=== PATIENT | male | born 1955 | race Caucasian/White ===

== ENCOUNTER 2019-02-17 12:09 | Inpatient (IN) | payer MEDICAID ==
[~2019-02-17] VITALS: Ht 172.7 cm; Wt 98.4 kg
[2019-02-17] MEDS ORDERED: LEVOFLOXACIN 750MG PREMIX 150 ML IV ONE (12:45)
[2019-02-17] MEDS ORDERED: SODIUM CHLORIDE 0.9% 1000ML BAG (SEPSIS BOLUS) IV ONE (12:45)
[2019-02-17 13:02] LABS: HEMATOCRIT. 37.6 % (42.0-52.0); HEMOGLOBIN. 12.9 g/dL (14.0-18.0); MEAN CORPUSCULAR HEMOGLOBIN 29.2 pg (28.0-32.0); MEAN CORPUSCULAR VOLUME 85.2 fL (80.0-94.0); RED BLOOD CELL COUNT 4.41 mill/uL (4.7-6.1); RED CELL DISTRIBUTION WIDTH 17.3 % (11.6-14.6)
[2019-02-17 13:09] LABS: CHLORIDE 103 mEq/L (98-107)
[2019-02-17 13:12] LABS: INR 1.9; PARTIAL THROMBOPLASTIN TIME 64.2 sec (23.4-31.0); PROTHROMBIN TIME 18.8 sec (9.6-11.0)
[2019-02-17] MEDS ORDERED: ACETAMINOPHEN 325MG TABLET PO ONE (13:15)
[2019-02-17 13:32] LABS: PLATELET ESTIMATE NORMAL
[2019-02-17 13:33] LABS: MEAN PLATELET VOLUME 8.1 fl (7.4-10.4); PLATELET 181 x1000/uL (130-400)
[2019-02-17] MEDS ORDERED: LACTULOSE 20G/30ML UDC PO ONE (14:00)
[2019-02-17 14:52] LABS: HEPATITIS B SURFACE ANTIGEN NEGATIVE
[2019-02-17] MEDS ORDERED: POTASSIUM CHLORIDE 20MEQ TABLET SR PO ONE (15:00)
[2019-02-17 15:22] LABS: HEPATITIS A AB IGM React (NEGATIVE)
[2019-02-17] MEDS ORDERED: LORAZEPAM 2MG/ML CPJ IV PRN (16:00)
[2019-02-17] MEDS ORDERED: GUAIFENESIN 200MG/10ML SUGAR FREE UDC PO PRN (16:00)
[2019-02-17] MEDS ORDERED: DOCUSATE SODIUM 100MG CAPSULE PO PRN (16:00)
[2019-02-17] MEDS ORDERED: HYDROCODONE/ACETAMINOPHEN 5/325MG TABLET PO PRN (16:00)
[2019-02-17] MEDS ORDERED: CLONIDINE 0.1MG TABLET PO PRN (16:00)
[2019-02-17] MEDS ORDERED: ONDANSETRON HCL 4MG/2ML INJ IV PRN (16:00)
[2019-02-17] MEDS ORDERED: ACETAMINOPHEN 325MG TABLET PO PRN (16:00)
[2019-02-17 17:27] LABS: CLARITY URINE CLOUDY (CLEAR); COLOR URINE DARK YELLOW (YELLOW); KETONES URINE NEGATIVE (NEGATIVE); LEUKOCYTE ESTERASE URINE 1+ (NEGATIVE); NITRITE URINE POSITIVE (NEGATIVE); OCCULT BLOOD URINE NEGATIVE (NEGATIVE); PROTEIN URINE TRACE (NEGATIVE); SPECIFIC GRAVITY URINE 1.023 (1.005-1.030); UROBILINOGEN URINE 0.2 E.U./dL (0.2-1.0)
[2019-02-17 21:50] VITALS: BP 123/82
[2019-02-17] MEDS: LACTULOSE 20G/30ML UDC PO SCH (22:00)
[2019-02-17] MEDS: SODIUM CHLORIDE 0.45% 1,000 ML IV SCH (23:08)
[2019-02-18 04:00] VITALS: BP 133/76
[2019-02-18 07:14] LABS: HEMATOCRIT. 37.5 % (42.0-52.0); HEMOGLOBIN. 13.1 g/dL (14.0-18.0); MEAN CORPUSCULAR HEMOGLOBIN 29.8 pg (28.0-32.0); MEAN CORPUSCULAR VOLUME 85.3 fL (80.0-94.0); MEAN PLATELET VOLUME 8.6 fl (7.4-10.4); PLATELET 160 x1000/uL (130-400); RED CELL DISTRIBUTION WIDTH 17.1 % (11.6-14.6)
[2019-02-18 07:50] LABS: CHLORIDE 106 mEq/L (98-107)
[2019-02-18 08:54] VITALS: BP 127/73
[2019-02-18] MEDS: AMLODIPINE 10MG TABLET PO SCH (09:17)
[2019-02-18] MEDS: LACTULOSE 20G/30ML UDC PO SCH ×2 (09:17→21:08)
[2019-02-18 11:43] VITALS: BP 108/63
[2019-02-18] MEDS: LEVOFLOXACIN 500MG PREMIX 100 ML IV SCH ×4 (12:20→13:54)
[2019-02-18] MEDS: POTASSIUM CHLORIDE 20MEQ TABLET SR PO NR ×4 (12:20→13:54)
[2019-02-18] MEDS: SODIUM CHLORIDE 0.45% 1,000 ML IV SCH (13:55)
[2019-02-18 14:31] LABS: PLATELET ESTIMATE NORMAL
[2019-02-18 15:46] VITALS: BP 136/80
[2019-02-18 20:00] VITALS: BP 119/65
[2019-02-18 23:50] VITALS: BP 120/68
[2019-02-19 04:00] VITALS: BP 126/64
[2019-02-19 06:50] LABS: HEMATOCRIT. 39.7 % (42.0-52.0); HEMOGLOBIN. 13.6 g/dL (14.0-18.0); MEAN CORPUSCULAR HEMOGLOBIN 29.2 pg (28.0-32.0); MEAN CORPUSCULAR VOLUME 85.5 fL (80.0-94.0); RED BLOOD CELL COUNT 4.64 mill/uL (4.7-6.1); RED CELL DISTRIBUTION WIDTH 17.5 % (11.6-14.6)
[2019-02-19 07:48] VITALS: BP 119/71
[2019-02-19 07:53] LABS: CHLORIDE 104 mEq/L (98-107)
[2019-02-19] MEDS: LACTULOSE 20G/30ML UDC PO SCH ×3 (08:22→21:20)
[2019-02-19] MEDS: AMLODIPINE 10MG TABLET PO SCH ×2 (08:22→09:00)
[2019-02-19 12:10] VITALS: BP 129/76
[2019-02-19 12:41] LABS: PLATELET ESTIMATE NORMAL
[2019-02-19 12:42] LABS: PLATELET 135 x1000/uL (130-400)
[2019-02-19 20:00] VITALS: BP 123/80
[2019-02-19] MEDS: HALOPERIDOL LACTATE 5MG/ML VIAL IM PRN (22:10)
[2019-02-19] MEDS: SODIUM CHLORIDE 0.45% 1,000 ML IV SCH (23:24)
[2019-02-20] VITALS: BP 114/68
[2019-02-20 04:00] VITALS: BP 117/73
[2019-02-20 08:00] VITALS: BP 120/73
[2019-02-20] MEDS: LACTULOSE 20G/30ML UDC PO SCH ×2 (08:34→21:10)
[2019-02-20] MEDS: AMLODIPINE 10MG TABLET PO SCH ×2 (08:35→08:41)
[2019-02-20 12:00] VITALS: BP 122/80
[2019-02-20] MEDS: LEVOFLOXACIN 500MG PREMIX 100 ML IV SCH (13:00)
[2019-02-20] MEDS: HALOPERIDOL LACTATE 5MG/ML VIAL IM PRN (14:53)
[2019-02-20 16:00] VITALS: BP 124/78
[2019-02-20 20:00] VITALS: BP 125/72
[2019-02-20] MEDS: LORAZEPAM 1MG TABLET PO PRN (21:11)
[2019-02-21] VITALS: BP 133/83
[2019-02-21 04:00] VITALS: BP 139/90
[2019-02-21 08:00] VITALS: BP 118/73
[2019-02-21] MEDS: AMLODIPINE 10MG TABLET PO SCH (09:11)
[2019-02-21] MEDS: LACTULOSE 20G/30ML UDC PO SCH ×2 (09:12→20:56)
[2019-02-21] MEDS: HALOPERIDOL LACTATE 5MG/ML VIAL IM PRN (11:45)
[2019-02-21 12:00] VITALS: BP 138/75
[2019-02-21] MEDS: LEVOFLOXACIN 500MG TABLET PO SCH (12:54)
[2019-02-21 16:00] VITALS: BP 107/53
[2019-02-21 20:00] VITALS: BP 107/63
[2019-02-21] MEDS: LORAZEPAM 1MG TABLET PO PRN (20:56)
[2019-02-22] VITALS: BP 114/67
[2019-02-22 04:00] VITALS: BP 128/77
[2019-02-22] MEDS: HALOPERIDOL LACTATE 5MG/ML VIAL IM PRN (08:30)
[2019-02-22] MEDS: AMLODIPINE 10MG TABLET PO SCH (08:30)
[2019-02-22] MEDS: LACTULOSE 20G/30ML UDC PO SCH ×2 (08:30→20:30)
[2019-02-22 12:00] VITALS: BP 118/74
[2019-02-22] MEDS: LORAZEPAM 1MG TABLET PO PRN ×2 (12:25→20:33)
[2019-02-22] MEDS: LEVOFLOXACIN 500MG TABLET PO SCH (12:26)
[2019-02-22 16:00] VITALS: BP 88/56
[2019-02-22 20:00] VITALS: BP 97/68
[2019-02-23] VITALS: BP 99/63
[2019-02-23 04:00] VITALS: BP 101/59
[2019-02-23 08:00] VITALS: BP 100/53
[2019-02-23] MEDS: AMLODIPINE 10MG TABLET PO SCH (09:00)
[2019-02-23] MEDS: LACTULOSE 20G/30ML UDC PO SCH ×2 (10:27→20:19)
[2019-02-23 11:35] VITALS: BP 118/69
[2019-02-23] MEDS: LORAZEPAM 1MG TABLET PO PRN ×2 (12:12→20:22)
[2019-02-23] MEDS: LEVOFLOXACIN 500MG TABLET PO SCH (12:12)
[2019-02-23 16:00] VITALS: BP 104/64
[2019-02-23 20:00] VITALS: BP 114/58
[2019-02-24] VITALS: BP 99/53
[2019-02-24 04:00] VITALS: BP 105/62
[2019-02-24] MEDS: HALOPERIDOL LACTATE 5MG/ML VIAL IM PRN ×3 (05:17→22:26)
[2019-02-24 08:00] VITALS: BP 97/60
[2019-02-24] MEDS: LACTULOSE 20G/30ML UDC PO SCH ×2 (09:00→21:18)
[2019-02-24] MEDS: AMLODIPINE 10MG TABLET PO SCH (09:00)
[2019-02-24 12:00] VITALS: BP 131/71
[2019-02-24] MEDS: LEVOFLOXACIN 500MG TABLET PO SCH (13:00)
[2019-02-24 20:00] VITALS: BP 106/48
[2019-02-24] MEDS: LORAZEPAM 1MG TABLET PO PRN (23:35)
[2019-02-25] VITALS: BP 102/63
[2019-02-25 04:00] VITALS: BP 97/64
[2019-02-25 08:00] VITALS: BP 112/63
[2019-02-25] MEDS: LACTULOSE 20G/30ML UDC PO SCH ×2 (09:00→20:14)
[2019-02-25] MEDS: AMLODIPINE 10MG TABLET PO SCH (09:00)
[2019-02-25] MEDS: HALOPERIDOL LACTATE 5MG/ML VIAL IM PRN ×2 (09:15→19:39)
[2019-02-25 12:00] VITALS: BP 112/71
[2019-02-25 16:00] VITALS: BP 112/68
[2019-02-25] MEDS: LORAZEPAM 1MG TABLET PO PRN (16:23)
[2019-02-25 20:00] VITALS: BP 111/64
[2019-02-25] MEDS ORDERED: IPRATROPIUM/ALBUTEROL 0.5-3(2.5)MG/3ML NEB HHN PRN (21:00)
[2019-02-25] MEDS: GUAIFENESIN 600MG ER TABLET PO SCH (23:11)
[2019-02-26] VITALS: BP 121/75
[2019-02-26] MEDS: IPRATROPIUM/ALBUTEROL 0.5-3(2.5)MG/3ML NEB HHN SCH ×4 (01:35→21:55)
[2019-02-26] MEDS: LORAZEPAM 1MG TABLET PO PRN (02:17)
[2019-02-26 04:00] VITALS: BP 99/52
[2019-02-26 08:00] VITALS: BP 106/59
[2019-02-26] MEDS: LACTULOSE 20G/30ML UDC PO SCH ×2 (09:00→22:34)
[2019-02-26] MEDS: GUAIFENESIN 600MG ER TABLET PO SCH ×2 (09:00→23:00)
[2019-02-26] MEDS: AMLODIPINE 10MG TABLET PO SCH (09:00)
[2019-02-26 12:00] VITALS: BP 101/56
[2019-02-26 16:00] VITALS: BP 96/55
[2019-02-26 20:43] LABS: BG BASE EXCESS 3.3 mmol/L (-2.0-2.0); BG CARBOXYHEMOGLOBIN 2.1 % (0.5-1.5); BG DEOXYHEMOGLOBIN 0.5 % (0.0-5.0); BG FRACTION INSPIRED OXYGEN 100; BG HCO3 ACT 28.9 mmol/L (22.0-26.0); BG METHEMOGLOBIN 0.2 % (0.0-1.5); BG OXYGEN SATURATION 99.5 % (92.0-98.5); BG OXYHEMOGLOBIN 97.2 % (94.0-97.0); BG PCO2 47.5 mmHg (35.0-45.0); BG PH 7.402 (7.350-7.450); BG PO2 180.1 mmHg (75.0-100.0); BG SAMPLE SITE LEFT RADIAL; BG TOTAL HEMOGLOBIN 14.6 g/dL (12.0-18.0); BG VENT MODE MASK - NRB
[2019-02-26] MEDS: DEXT 5%/0.45% NACL 1000ML 1,000 ML IV SCH (22:37)
[2019-02-27 00:10] LABS: HEMATOCRIT. 38.1 % (42.0-52.0); HEMOGLOBIN. 13.3 g/dL (14.0-18.0); MEAN CORPUSCULAR HEMOGLOBIN 30.6 pg (28.0-32.0); MEAN CORPUSCULAR VOLUME 87.4 fL (80.0-94.0); RED BLOOD CELL COUNT 4.36 mill/uL (4.7-6.1); RED CELL DISTRIBUTION WIDTH 18.8 % (11.6-14.6)
[2019-02-27 00:14] LABS: CHLORIDE 104 mEq/L (98-107)
[2019-02-27 00:25] LABS: MEAN PLATELET VOLUME 9.1 fl (7.4-10.4); PLATELET 97 x1000/uL (130-400)
[2019-02-27] MEDS: IPRATROPIUM/ALBUTEROL 0.5-3(2.5)MG/3ML NEB HHN SCH ×4 (01:45→20:08)
[2019-02-27 04:43] LABS: PLATELET ESTIMATE DECREASED
[2019-02-27] MEDS: LACTULOSE 20G/30ML UDC PO SCH ×2 (09:00→21:20)
[2019-02-27] MEDS ORDERED: VANCOMYCIN 1500MG in DEXTROSE 5% WATER 250ML IV SCH (10:30)
[2019-02-27] MEDS: GUAIFENESIN 600MG ER TABLET PO SCH ×2 (11:31→21:21)
[2019-02-27] MEDS: AMLODIPINE 10MG TABLET PO SCH (11:33)
[2019-02-27] MEDS: DEXT 5%/0.45% NACL 1000ML 1,000 ML IV SCH (11:41)
[2019-02-27 12:00] VITALS: BP 110/65
[2019-02-27] MEDS: PIPERACILLIN/TAZ 3.375G PREMIX 50 ML IV SCH ×2 (12:21→18:06)
[2019-02-27 16:00] VITALS: BP 115/73
[2019-02-27 20:00] VITALS: BP 106/61
[2019-02-27 22:00] VITALS: BP 95/58
[2019-02-27] MEDS: VANCOMYCIN 1500MG in DEXTROSE 5% WATER 250ML IV SCH (22:58)
[2019-02-27] MEDS ORDERED: VANCOMYCIN 1250MG in DEXTROSE 5% WATER 250ML IV SCH (23:00)
[2019-02-28] VITALS (10 sets, daily range): BP systolic 101–143; BP diastolic 60–73
[2019-02-28] MEDS: PIPERACILLIN/TAZ 3.375G PREMIX 50 ML IV SCH ×4 (00:03→18:25)
[2019-02-28] MEDS: IPRATROPIUM/ALBUTEROL 0.5-3(2.5)MG/3ML NEB HHN SCH ×4 (01:35→20:37)
[2019-02-28 05:19] LABS: CHLORIDE 104 mEq/L (98-107)
[2019-02-28 06:18] LABS: BASOPHILS % 0.4 % (0.0-2.0); EOSINOPHILS % 0.4 % (0.0-5.0); HEMATOCRIT. 37.5 % (42.0-52.0); HEMOGLOBIN. 13.1 g/dL (14.0-18.0); LYMPHOCYTES % 7.3 % (20.0-50.0); MEAN CORPUSCULAR HEMOGLOBIN 30.8 pg (28.0-32.0); MEAN CORPUSCULAR VOLUME 87.8 fL (80.0-94.0); MONOCYTES % 12.4 % (2.0-8.0); NEUTROPHILS % 79.5 % (40.0-76.0); RED BLOOD CELL COUNT 4.27 mill/uL (4.7-6.1); RED CELL DISTRIBUTION WIDTH 19.9 % (11.6-14.6)
[2019-02-28] MEDS: VANCOMYCIN 1500MG in DEXTROSE 5% WATER 250ML IV SCH ×2 (08:51→21:34)
[2019-02-28] MEDS: DEXT 5%/0.45% NACL 1000ML 1,000 ML IV SCH ×2 (08:51→18:37)
[2019-02-28] MEDS: LACTULOSE 20G/30ML UDC PO SCH ×2 (08:52→21:43)
[2019-02-28] MEDS: AMLODIPINE 10MG TABLET PO SCH (08:52)
[2019-02-28] MEDS: GUAIFENESIN 600MG ER TABLET PO SCH ×2 (08:52→21:43)
[2019-02-28 10:46] LABS: PLATELET 79 x1000/uL (130-400)
[2019-02-28] MEDS: HALOPERIDOL LACTATE 5MG/ML VIAL IM PRN ×2 (11:24→21:27)
[2019-03-01] VITALS (9 sets, daily range): BP systolic 104–140; BP diastolic 38–80
[2019-03-01] MEDS: PIPERACILLIN/TAZ 3.375G PREMIX 50 ML IV SCH ×3 (00:12→13:37)
[2019-03-01] MEDS: LORAZEPAM 1MG TABLET PO PRN ×2 (00:41→16:13)
[2019-03-01] MEDS: DEXT 5%/0.45% NACL 1000ML 1,000 ML IV SCH (06:44)
[2019-03-01 07:12] LABS: BASOPHILS % 0.2 % (0.0-2.0); EOSINOPHILS % 0.8 % (0.0-5.0); HEMATOCRIT. 35.7 % (42.0-52.0); HEMOGLOBIN. 12.6 g/dL (14.0-18.0); LYMPHOCYTES % 7.5 % (20.0-50.0); MEAN CORPUSCULAR HEMOGLOBIN 30.8 pg (28.0-32.0); MEAN CORPUSCULAR VOLUME 87.5 fL (80.0-94.0); MONOCYTES % 12.2 % (2.0-8.0); NEUTROPHILS % 79.3 % (40.0-76.0); RED BLOOD CELL COUNT 4.08 mill/uL (4.7-6.1); RED CELL DISTRIBUTION WIDTH 19.2 % (11.6-14.6)
[2019-03-01 07:29] LABS: CHLORIDE 102 mEq/L (98-107)
[2019-03-01 08:09] LABS: PLATELET 95 x1000/uL (130-400)
[2019-03-01] MEDS: AMLODIPINE 10MG TABLET PO SCH (09:00)
[2019-03-01] MEDS: LACTULOSE 20G/30ML UDC PO SCH ×2 (09:14→23:24)
[2019-03-01] MEDS: GUAIFENESIN 600MG ER TABLET PO SCH ×2 (09:14→23:23)
[2019-03-01] MEDS: VANCOMYCIN 1500MG in DEXTROSE 5% WATER 250ML IV SCH (10:01)
[2019-03-01] MEDS: HALOPERIDOL LACTATE 5MG/ML VIAL IM PRN ×2 (15:09→19:29)
[2019-03-01] MEDS: VANCOMYCIN 1250MG in DEXTROSE 5% WATER 250ML IV SCH (17:13)
[2019-03-01] MEDS: LORAZEPAM 2MG/ML CPJ IM PRN (19:29)
[2019-03-01] MEDS: SULFAMETHOXAZOLE/TRIMETHOPRIM 400/80MG TAB PO SCH (23:23)
[2019-03-02] VITALS: BP 93/55
[2019-03-02] MEDS: VANCOMYCIN 1250MG in DEXTROSE 5% WATER 250ML IV SCH ×3 (02:00→17:29)
[2019-03-02 04:00] VITALS: BP 96/56
[2019-03-02] MEDS: HALOPERIDOL LACTATE 5MG/ML VIAL IM PRN ×2 (05:08→20:00)
[2019-03-02] MEDS: LORAZEPAM 2MG/ML CPJ IM PRN ×3 (05:08→20:00)
[2019-03-02 08:00] VITALS: BP 96/55
[2019-03-02] MEDS: AMLODIPINE 10MG TABLET PO SCH (08:32)
[2019-03-02] MEDS: LACTULOSE 20G/30ML UDC PO SCH ×2 (08:56→21:15)
[2019-03-02] MEDS: SULFAMETHOXAZOLE/TRIMETHOPRIM 400/80MG TAB PO SCH ×2 (09:00→21:13)
[2019-03-02] MEDS: GUAIFENESIN 600MG ER TABLET PO SCH ×2 (09:00→21:13)
[2019-03-02] MEDS: CEFTRIAXONE SODIUM 1 G/VIAL IM SCH (09:00)
[2019-03-02] MEDS ORDERED: LIDOCAINE HCL/EPINEPHRINE 1%-EPI 1:100,000 20 ML VIAL INFIL NR (10:00)
[2019-03-02 12:00] VITALS: BP 104/63
[2019-03-02 16:00] VITALS: BP 96/65
[2019-03-02 20:00] VITALS: BP 103/65
[2019-03-03] VITALS: BP 93/55
[2019-03-03] MEDS: VANCOMYCIN 1250MG in DEXTROSE 5% WATER 250ML IV SCH ×3 (02:00→18:00)
[2019-03-03 04:00] VITALS: BP 101/54
[2019-03-03 08:00] VITALS: BP 98/56
[2019-03-03] MEDS: AMLODIPINE 10MG TABLET PO SCH (09:00)
[2019-03-03] MEDS: LACTULOSE 20G/30ML UDC PO SCH ×2 (09:00→20:45)
[2019-03-03] MEDS: CEFTRIAXONE SODIUM 1 G/VIAL IM SCH (10:45)
[2019-03-03] MEDS: LORAZEPAM 2MG/ML CPJ IM PRN ×2 (10:46→20:41)
[2019-03-03] MEDS: GUAIFENESIN 600MG ER TABLET PO SCH ×2 (10:47→20:59)
[2019-03-03] MEDS: SULFAMETHOXAZOLE/TRIMETHOPRIM 400/80MG TAB PO SCH ×2 (10:47→20:47)
[2019-03-03 12:00] VITALS: BP 99/56
[2019-03-03] MEDS: HALOPERIDOL LACTATE 5MG/ML VIAL IM PRN ×2 (12:32→21:24)
[2019-03-03 13:29] LABS: BASOPHILS % 0.2 % (0.0-2.0); EOSINOPHILS % 0.4 % (0.0-5.0); HEMATOCRIT. 37.2 % (42.0-52.0); LYMPHOCYTES % 7.5 % (20.0-50.0); MEAN CORPUSCULAR HEMOGLOBIN 30.7 pg (28.0-32.0); MEAN PLATELET VOLUME 8.6 fl (7.4-10.4); MONOCYTES % 13.6 % (2.0-8.0); NEUTROPHILS % 78.3 % (40.0-76.0); PLATELET 107 x1000/uL (130-400); RED BLOOD CELL COUNT 4.23 mill/uL (4.7-6.1); RED CELL DISTRIBUTION WIDTH 19.7 % (11.6-14.6)
[2019-03-03 13:37] LABS: CHLORIDE 104 mEq/L (98-107)
[2019-03-03 14:14] LABS: PLATELET ESTIMATE DECREASED
[2019-03-03 16:00] VITALS: BP 98/60
[2019-03-03 20:00] VITALS: BP 118/60
[2019-03-04] VITALS: BP 122/66
[2019-03-04] MEDS: LORAZEPAM 2MG/ML CPJ IM PRN (01:10)
[2019-03-04] MEDS: VANCOMYCIN 1250MG in DEXTROSE 5% WATER 250ML IV SCH ×2 (02:00→10:00)
[2019-03-04] MEDS: HALOPERIDOL LACTATE 5MG/ML VIAL IM PRN (05:42)
[2019-03-04 07:54] VITALS: BP 95/58
[2019-03-04] MEDS: LACTULOSE 20G/30ML UDC PO SCH (09:00)
[2019-03-04] MEDS: SULFAMETHOXAZOLE/TRIMETHOPRIM 400/80MG TAB PO SCH ×2 (09:00→21:00)
[2019-03-04] MEDS: GUAIFENESIN 600MG ER TABLET PO SCH ×2 (09:00→21:00)
[2019-03-04] MEDS: AMLODIPINE 10MG TABLET PO SCH (09:00)
[2019-03-04] MEDS: CEFTRIAXONE SODIUM 1 G/VIAL IM SCH (10:33)
[2019-03-04] MEDS: LIDOCAINE HCL/PF 1% 10 MG/ML 5ML VIAL IJ SCH (10:33)
[2019-03-04 12:00] VITALS: BP 98/53
[2019-03-04 12:17] LABS: HEMOGLOBIN. 12.6 g/dL (14.0-18.0); MEAN CORPUSCULAR HEMOGLOBIN 30.2 pg (28.0-32.0); MEAN CORPUSCULAR VOLUME 88.4 fL (80.0-94.0); MEAN PLATELET VOLUME 8.5 fl (7.4-10.4); PLATELET 112 x1000/uL (130-400); RED BLOOD CELL COUNT 4.18 mill/uL (4.7-6.1); RED CELL DISTRIBUTION WIDTH 21.7 % (11.6-14.6)
[2019-03-04 12:23] LABS: CHLORIDE 105 mEq/L (98-107)
[2019-03-04 13:01] LABS: PLATELET ESTIMATE SLIGHTLY DECREASED
[2019-03-04 16:00] VITALS: BP 93/49
[2019-03-04] MEDS ORDERED: STERILE WATER PR SCH (18:00)
[2019-03-04] MEDS ORDERED: LACTULOSE ENEMA PR SCH (18:00)
[2019-03-04 20:00] VITALS: BP 100/53
[2019-03-04] MEDS ORDERED: LACTULOSE 20G/30ML UDC PR SCH (21:00)
[2019-03-05] VITALS (7 sets, daily range): BP systolic 90–106; BP diastolic 45–62
[2019-03-05] MEDS: HALOPERIDOL LACTATE 5MG/ML VIAL IM PRN (02:16)
[2019-03-05] MEDS: LORAZEPAM 2MG/ML CPJ IM PRN ×2 (07:54→18:55)
[2019-03-05] MEDS: GUAIFENESIN 600MG ER TABLET PO SCH ×2 (08:17→21:00)
[2019-03-05] MEDS: AMLODIPINE 10MG TABLET PO SCH (08:17)
[2019-03-05] MEDS: SULFAMETHOXAZOLE/TRIMETHOPRIM 400/80MG TAB PO SCH ×2 (08:17→21:00)
[2019-03-05] MEDS: CEFTRIAXONE SODIUM 1 G/VIAL IM SCH ×2 (08:17→09:00)
[2019-03-05] MEDS: LIDOCAINE HCL/PF 1% 10 MG/ML 5ML VIAL IJ SCH (09:00)
[2019-03-05] MEDS: LACTULOSE 20G/30ML UDC PO SCH ×2 (13:30→17:00)
[2019-03-05] MEDS ORDERED: LACTULOSE 300 ML in WATER FOR IRRIGATION,STERILE 700 ML PR SCH (14:00)
[2019-03-05] MEDS: PHYTONADIONE 10MG/ML AMP SUBCUT SCH (15:46)
[2019-03-05 16:51] LABS: INR 1.9; PARTIAL THROMBOPLASTIN TIME 54.3 sec (23.4-31.0); PROTHROMBIN TIME 19.4 sec (9.6-11.0)
[2019-03-05 17:12] LABS: HEMATOCRIT 39.1 % (42.0-52.0); HEMOGLOBIN 13.6 g/dL (14.0-18.0); MEAN CORPUSCULAR HEMOGLOBIN 30.9 pg (28.0-32.0); MEAN CORPUSCULAR VOLUME 88.7 fL (80.0-94.0); PLATELET 152 x1000/uL (130-400); RED CELL DISTRIBUTION WIDTH 22.1 % (11.6-14.6)
[2019-03-05] MEDS: RIFAXIMIN 550 MG TABLET PO SCH (21:00)
[2019-03-06] VITALS: BP 98/53
[2019-03-06 04:00] VITALS: BP 101/54
[2019-03-06] MEDS: LORAZEPAM 2MG/ML CPJ IM PRN ×2 (05:39→12:33)
[2019-03-06 07:36] LABS: BG CARBOXYHEMOGLOBIN 1.9 % (0.5-1.5); BG DEOXYHEMOGLOBIN 5.7 % (0.0-5.0); BG FRACTION INSPIRED OXYGEN 36; BG HCO3 ACT 31.4 mmol/L (22.0-26.0); BG METHEMOGLOBIN 0.1 % (0.0-1.5); BG OXYGEN SATURATION 94.2 % (92.0-98.5); BG OXYHEMOGLOBIN 92.3 % (94.0-97.0); BG PCO2 48.9 mmHg (35.0-45.0); BG PH 7.426 (7.350-7.450); BG PO2 72.5 mmHg (75.0-100.0); BG SAMPLE SITE RIGHT RADIAL; BG TOTAL HEMOGLOBIN 13.1 g/dL (12.0-18.0); BG VENT MODE NASAL CANNULA
[2019-03-06] MEDS ORDERED: DEXTROSE 50% WATER 50ML SYRINGE IV PRN (07:43)
[2019-03-06] MEDS: LIDOCAINE HCL/PF 1% 10 MG/ML 5ML VIAL IJ SCH (09:00)
[2019-03-06] MEDS: RIFAXIMIN 550 MG TABLET PO SCH ×2 (09:00→22:03)
[2019-03-06] MEDS: LACTULOSE 20G/30ML UDC PO SCH ×2 (09:00→17:00)
[2019-03-06] MEDS: SULFAMETHOXAZOLE/TRIMETHOPRIM 400/80MG TAB PO SCH ×2 (09:00→22:03)
[2019-03-06] MEDS: GUAIFENESIN 600MG ER TABLET PO SCH ×2 (09:00→22:03)
[2019-03-06] MEDS: AMLODIPINE 10MG TABLET PO SCH (09:00)
[2019-03-06] MEDS: HALOPERIDOL LACTATE 5MG/ML VIAL IM PRN (09:58)
[2019-03-06] MEDS: PHYTONADIONE 10MG/ML AMP SUBCUT SCH (09:59)
[2019-03-06] MEDS: CEFTRIAXONE SODIUM 1 G/VIAL IM SCH (10:03)
[2019-03-06 11:37] LABS: HEMATOCRIT 34.4 % (42.0-52.0); HEMOGLOBIN 11.8 g/dL (14.0-18.0); MEAN CORPUSCULAR HEMOGLOBIN 30.4 pg (28.0-32.0); MEAN CORPUSCULAR VOLUME 88.6 fL (80.0-94.0); PLATELET 150 x1000/uL (130-400); RED BLOOD CELL COUNT 3.88 mill/uL (4.7-6.1); RED CELL DISTRIBUTION WIDTH 22.6 % (11.6-14.6)
[2019-03-06 11:45] LABS: INR 1.6; PARTIAL THROMBOPLASTIN TIME 52.8 sec (23.4-31.0); PROTHROMBIN TIME 16.4 sec (9.6-11.0)
[2019-03-06 12:00] VITALS: BP 105/56
[2019-03-06] MEDS: DEXT 5%/0.45% NACL 1000ML 1,000 ML IV SCH (13:11)
[2019-03-06 17:29] LABS: INR 1.5; PROTHROMBIN TIME 15.4 sec (9.6-11.0)
[2019-03-06 20:00] VITALS: BP 102/60
[2019-03-06] MEDS ORDERED: LORAZEPAM 2MG/ML CPJ IM PRN (20:45)
[2019-03-07] VITALS: BP 103/68
[2019-03-07] MEDS: HALOPERIDOL LACTATE 5MG/ML VIAL IM PRN ×3 (00:59→20:51)
[2019-03-07 04:00] VITALS: BP 115/72
[2019-03-07] MEDS: DEXT 5%/0.45% NACL 1000ML 1,000 ML IV SCH ×2 (06:15→17:25)
[2019-03-07 08:00] VITALS: BP 101/67
[2019-03-07 08:50] LABS: HEMATOCRIT 34.5 % (42.0-52.0); HEMOGLOBIN 11.9 g/dL (14.0-18.0); MEAN CORPUSCULAR HEMOGLOBIN 30.6 pg (28.0-32.0); MEAN CORPUSCULAR VOLUME 89.2 fL (80.0-94.0); RED BLOOD CELL COUNT 3.87 mill/uL (4.7-6.1); RED CELL DISTRIBUTION WIDTH 23.6 % (11.6-14.6)
[2019-03-07] MEDS: AMLODIPINE 10MG TABLET PO SCH (09:00)
[2019-03-07 09:01] LABS: INR 1.6; PARTIAL THROMBOPLASTIN TIME 51.3 sec (23.4-31.0); PROTHROMBIN TIME 16.2 sec (9.6-11.0)
[2019-03-07 09:52] LABS: PLATELET 145 x1000/uL (130-400)
[2019-03-07] MEDS: RIFAXIMIN 550 MG TABLET PO SCH ×2 (10:37→20:35)
[2019-03-07] MEDS: PHYTONADIONE 10MG/ML AMP SUBCUT SCH (10:38)
[2019-03-07] MEDS: LACTULOSE 20G/30ML UDC PO SCH ×2 (10:40→17:25)
[2019-03-07] MEDS: GUAIFENESIN 600MG ER TABLET PO SCH ×2 (10:45→20:35)
[2019-03-07] MEDS: CEFTRIAXONE SODIUM 1 G/VIAL IM SCH (10:45)
[2019-03-07] MEDS: SULFAMETHOXAZOLE/TRIMETHOPRIM 400/80MG TAB PO SCH ×2 (10:45→20:35)
[2019-03-07] MEDS: LIDOCAINE HCL/PF 1% 10 MG/ML 5ML VIAL IJ SCH (11:12)
[2019-03-07 12:00] VITALS: BP 103/69
[2019-03-07 16:00] VITALS: BP 129/78
[2019-03-07 20:00] VITALS: BP 112/66
[2019-03-08] VITALS: BP 95/62
[2019-03-08] MEDS: HALOPERIDOL LACTATE 5MG/ML VIAL IM PRN ×2 (03:08→17:40)
[2019-03-08 04:00] VITALS: BP 111/67
[2019-03-08] MEDS: DEXT 5%/0.45% NACL 1000ML 1,000 ML IV SCH (07:55)
[2019-03-08 08:00] VITALS: BP 97/52
[2019-03-08] MEDS: AMLODIPINE 10MG TABLET PO SCH (09:00)
[2019-03-08] MEDS: LACTULOSE 20G/30ML UDC PO SCH (09:00)
[2019-03-08 09:23] LABS: INR 1.6; PROTHROMBIN TIME 16.6 sec (9.6-11.0)
[2019-03-08] MEDS: SULFAMETHOXAZOLE/TRIMETHOPRIM 400/80MG TAB PO SCH (09:46)
[2019-03-08] MEDS: RIFAXIMIN 550 MG TABLET PO SCH (09:46)
[2019-03-08] MEDS: LIDOCAINE HCL/PF 1% 10 MG/ML 5ML VIAL IJ SCH (09:49)
[2019-03-08] MEDS: GUAIFENESIN 600MG ER TABLET PO SCH (09:49)
[2019-03-08] MEDS: CEFTRIAXONE SODIUM 1 G/VIAL IM SCH (09:50)
[2019-03-08 12:00] VITALS: BP 95/60
[2019-03-08 16:00] VITALS: BP 99/67
[2019-03-08 17:07] VITALS: BP 99/67
== END 2019-03-08 19:15 | DRG 710 ==
LOC: ER 12:09 → 6WST 14:57 → SUPCPDRO 15:55 → ENRESERV 19:35 → 6WST 21:10 → 6EST 02-19 15:06 → 5EST 02-26 20:17 → 6WST 03-01 02:00 → 6EST 03-01 14:34
PROVIDERS: ADMIT Hospitalist; ATTEND Hospitalist
PROC: 0KB50ZZ Excision of Right Shoulder Muscle, Open Approach (ICD-10-PCS; principal; 2019-03-02)
PROC: 0DH67UZ Insertion of Feeding Device into Stomach, Via Natural or Artificial Opening (ICD-10-PCS; 2019-03-08)
DX: A41.9 Sepsis, unspecified organism (principal); K72.00 Acute and subacute hepatic failure without coma; D68.9 Coagulation defect, unspecified; E44.1 Mild protein-calorie malnutrition; R18.8 Other ascites; Z78.1 Physical restraint status; B15.9 Hepatitis A without hepatic coma; N39.0 Urinary tract infection, site not specified; E87.6 Hypokalemia; B19.20 Unspecified viral hepatitis C without hepatic coma; F10.10 Alcohol abuse, uncomplicated; L02.413 Cutaneous abscess of right upper limb; K74.60 Unspecified cirrhosis of liver; Z91.14 Patient's other noncompliance with medication regimen; Z59.0 Homelessness; W19.XXXA Unspecified fall, initial encounter
CPT/HCPCS: 36415; 36600; 71045; 73030; 76705; 80048; 80076; 80202; 82140; 82248; 82375; 82805; 82962; 83605; 83735; 84134; 84145; 84484; 85027; 86705; 86709; 86803; 86850; 86900; 87070; 87077; 87340; 92610; 93005; 94640; 96365; 96366; 99285; A6261; C1893; J0696; J1630; J1956; J2060; J2543; J3370; J3430; J3490; J7030; J7050; J7060; J7620; A4315

== ENCOUNTER 2019-04-29 03:29 | Inpatient (IN) | payer MEDICAID ==
[~2019-04-29] VITALS: Ht 198.1 cm; Wt 92.6 kg
[2019-04-29] MEDS ORDERED: ONDANSETRON HCL 4MG/2ML INJ IV STA (04:34)
[2019-04-29 05:06] LABS: BASOPHILS % 0.4 % (0.0-2.0); HEMATOCRIT. 28.2 % (42.0-52.0); HEMOGLOBIN. 9.8 g/dL (14.0-18.0); LYMPHOCYTES % 14.8 % (20.0-50.0); MEAN CORPUSCULAR VOLUME 101.2 fL (80.0-94.0); MEAN PLATELET VOLUME 7.5 fl (7.4-10.4); MONOCYTES % 13.3 % (2.0-8.0); NEUTROPHILS % 70.5 % (40.0-76.0); PLATELET 150 x1000/uL (130-400); RED BLOOD CELL COUNT 2.79 mill/uL (4.7-6.1); RED CELL DISTRIBUTION WIDTH 14.8 % (11.6-14.6)
[2019-04-29 05:18] LABS: CHLORIDE 102 mEq/L (98-107)
[2019-04-29 06:16] LABS: CLARITY URINE CLEAR (CLEAR); COLOR URINE YELLOW (YELLOW); KETONES URINE NEGATIVE (NEGATIVE); LEUKOCYTE ESTERASE URINE NEGATIVE (NEGATIVE); NITRITE URINE NEGATIVE (NEGATIVE); OCCULT BLOOD URINE NEGATIVE (NEGATIVE); PROTEIN URINE NEGATIVE (NEGATIVE); SPECIFIC GRAVITY URINE 1.003 (1.005-1.030); UROBILINOGEN URINE 0.2 E.U./dL (0.2-1.0)
[2019-04-29] MEDS ORDERED: ACETAMINOPHEN 325MG TABLET PO PRN (06:45)
[2019-04-29] MEDS ORDERED: CLONIDINE 0.1MG TABLET PO PRN (06:45)
[2019-04-29] MEDS ORDERED: IPRATROPIUM/ALBUTEROL 0.5-3(2.5)MG/3ML NEB INH PRN (06:45)
[2019-04-29] MEDS ORDERED: DOCUSATE SODIUM 100MG CAPSULE PO PRN (06:45)
[2019-04-29] MEDS ORDERED: HYDROCODONE/ACETAMINOPHEN 5/325MG TABLET PO PRN (06:45)
[2019-04-29] MEDS ORDERED: DEXT 5%/0.9% NACL 1,000 ML IV ONE (06:45)
[2019-04-29] MEDS ORDERED: MAGNESIUM/ALUMINUM HYDROXIDE/SIMETHICONE 30ML UDC PO PRN (06:45)
[2019-04-29] MEDS ORDERED: GUAIFENESIN 200MG/10ML SUGAR FREE UDC PO PRN (06:45)
[2019-04-29] MEDS ORDERED: ONDANSETRON HCL 4MG/2ML INJ IV PRN (06:45)
[2019-04-29 08:10] LABS: PHOSPHORUS 3.1 mg/dL (2.5-4.9)
[2019-04-29 08:33] LABS: HEPATITIS B SURFACE ANTIGEN NEGATIVE
[2019-04-29 09:03] LABS: HEPATITIS A AB IGM React (NEGATIVE)
[2019-04-29 09:10] VITALS: BP 169/98
[2019-04-29 12:00] VITALS: BP 110/68
[2019-04-29] MEDS: ENOXAPARIN 30MG/0.3ML SYR SUBCUT SCH ×2 (12:32→21:01)
[2019-04-29 16:00] VITALS: BP 116/67
[2019-04-29 20:00] VITALS: BP 100/61
[2019-04-30] VITALS: BP 111/70
[2019-04-30 04:00] VITALS: BP 140/66
[2019-04-30 04:16] LABS: HIV SCREEN 4G Non Reactive (Non Reactive)
[2019-04-30 05:35] LABS: BASOPHILS % 0.3 % (0.0-2.0); EOSINOPHILS % 0.5 % (0.0-5.0); HEMATOCRIT. 27.8 % (42.0-52.0); HEMOGLOBIN. 9.4 g/dL (14.0-18.0); LYMPHOCYTES % 7.2 % (20.0-50.0); MEAN CORPUSCULAR HEMOGLOBIN 34.8 pg (28.0-32.0); MEAN CORPUSCULAR VOLUME 102.6 fL (80.0-94.0); MEAN PLATELET VOLUME 8.1 fl (7.4-10.4); PLATELET 179 x1000/uL (130-400); RED BLOOD CELL COUNT 2.71 mill/uL (4.7-6.1); RED CELL DISTRIBUTION WIDTH 14.9 % (11.6-14.6)
[2019-04-30 05:40] LABS: CHLORIDE 103 mEq/L (98-107)
[2019-04-30 05:51] LABS: LDL CHOLESTEROL 66 mg/dL (5-100)
[2019-04-30 05:52] LABS: HDL CHOLESTEROL 15 mg/dL (40-59)
[2019-04-30 08:00] VITALS: BP 100/54
[2019-04-30] MEDS: ENOXAPARIN 30MG/0.3ML SYR SUBCUT SCH ×2 (08:53→22:13)
[2019-04-30 12:00] VITALS: BP_SYST 100; BP_SYST 106; BP_DIAS 56; BP_DIAS 58
[2019-04-30 16:00] VITALS: BP 149/68
[2019-04-30 20:00] VITALS: BP 100/61
[2019-04-30] MEDS: DIPHENHYDRAMINE 50MG/ML VIAL IV PRN (22:13)
[2019-04-30] MEDS: HALOPERIDOL LACTATE 5MG/ML VIAL IM PRN (23:29)
[2019-05-01] VITALS: BP 103/70
[2019-05-01] MEDS: DIPHENHYDRAMINE 50MG/ML VIAL IV PRN (03:27)
[2019-05-01 04:00] VITALS: BP 100/77
[2019-05-01 08:00] VITALS: BP 112/50
[2019-05-01] MEDS: ENOXAPARIN 30MG/0.3ML SYR SUBCUT SCH ×2 (08:22→20:14)
[2019-05-01 08:50] LABS: BASOPHILS % 0.8 % (0.0-2.0); EOSINOPHILS % 1.3 % (0.0-5.0); HEMATOCRIT. 26.5 % (42.0-52.0); HEMOGLOBIN. 9.2 g/dL (14.0-18.0); LYMPHOCYTES % 12.6 % (20.0-50.0); MEAN CORPUSCULAR HEMOGLOBIN 35.3 pg (28.0-32.0); MEAN CORPUSCULAR VOLUME 102.1 fL (80.0-94.0); MEAN PLATELET VOLUME 8.2 fl (7.4-10.4); MONOCYTES % 13.5 % (2.0-8.0); NEUTROPHILS % 71.8 % (40.0-76.0); PLATELET 167 x1000/uL (130-400); RED CELL DISTRIBUTION WIDTH 14.6 % (11.6-14.6)
[2019-05-01 09:00] LABS: CHLORIDE 106 mEq/L (98-107)
[2019-05-01 12:00] VITALS: BP 107/77
[2019-05-01] MEDS: HALOPERIDOL LACTATE 5MG/ML VIAL IM PRN ×2 (12:42→19:45)
[2019-05-01 16:00] VITALS: BP 90/59
[2019-05-01] MEDS ORDERED: VANCOMYCIN 1500MG in DEXTROSE 5% WATER 250ML IV SCH (18:00)
[2019-05-01 20:00] VITALS: BP 100/56
[2019-05-01] MEDS: FUROSEMIDE 40MG TABLET PO SCH (20:19)
[2019-05-01] MEDS: SPIRONOLACTONE 50MG TABLET PO SCH (20:19)
[2019-05-01] MEDS: VANCOMYCIN 1 G PREMIX 200 ML IV SCH (23:15)
[2019-05-02] VITALS: BP 95/57
[2019-05-02] MEDS: HALOPERIDOL LACTATE 5MG/ML VIAL IM PRN (01:17)
[2019-05-02 04:00] VITALS: BP 96/65
[2019-05-02 08:00] VITALS: BP 129/83
[2019-05-02] MEDS: VANCOMYCIN 1 G PREMIX 200 ML IV SCH ×3 (08:04→23:59)
[2019-05-02] MEDS: ENOXAPARIN 30MG/0.3ML SYR SUBCUT SCH ×2 (09:00→20:28)
[2019-05-02] MEDS: FUROSEMIDE 40MG TABLET PO SCH ×2 (09:57→20:28)
[2019-05-02] MEDS: SPIRONOLACTONE 50MG TABLET PO SCH (09:57)
[2019-05-02 12:00] VITALS: BP 100/80
[2019-05-02 12:12] LABS: INR 1.1; PARTIAL THROMBOPLASTIN TIME 30.1 sec (23.4-31.0)
[2019-05-02] MEDS ORDERED: LIDOCAINE HCL 1% 20ML VIAL (Pyxis) INJ ONE (12:37)
[2019-05-02] MEDS ORDERED: SODIUM BICARBONATE 4% (2.4MEQ) 5ML VIAL IV ONE (12:38)
[2019-05-02 16:00] VITALS: BP 108/68
[2019-05-02 16:18] LABS: *BARBITURATES SCREEN URINE NEGATIVE (NEGATIVE); *BENZODIAZEPINES SCREEN URINE NEGATIVE (NEGATIVE); *COCAINE SCREEN URINE NEGATIVE (NEGATIVE)
[2019-05-02 16:20] LABS: *AMPHETAMINES SCREEN URINE NEGATIVE (NEGATIVE); CANNABINOID URINE SCREEN NEGATIVE (NEGATIVE); METHADONE URINE SCREEN NEGATIVE (NEGATIVE); OPIATES URINE SCREEN NEGATIVE (NEGATIVE); PHENCYCLIDINE URINE SCREEN NEGATIVE (NEGATIVE)
[2019-05-02] MEDS: MULTIVITAMINS,THER W-MINERALS TABLET PO SCH (16:41)
[2019-05-02] MEDS: FOLIC ACID 1MG TABLET PO SCH (16:42)
[2019-05-02] MEDS: THIAMINE HCL 100MG TABLET PO SCH (16:42)
[2019-05-02 16:44] LABS: ETHANOL BLOOD < 10 mg/dL
[2019-05-02 16:50] LABS: T4 FREE 1.24 ng/dL (0.76-1.46)
[2019-05-02 17:02] LABS: FOLIC ACID (FOLATE) SERUM 7.4 ng/mL (>5.38)
[2019-05-02 20:00] VITALS: BP 91/53
[2019-05-03] VITALS: BP 90/60
[2019-05-03 04:00] VITALS: BP 100/67
[2019-05-03 07:08] LABS: BASOPHILS % 0.5 % (0.0-2.0); EOSINOPHILS % 1.7 % (0.0-5.0); HEMATOCRIT. 29.1 % (42.0-52.0); LYMPHOCYTES % 12.3 % (20.0-50.0); MEAN CORPUSCULAR HEMOGLOBIN 35.1 pg (28.0-32.0); MEAN CORPUSCULAR VOLUME 101.6 fL (80.0-94.0); MEAN PLATELET VOLUME 7.4 fl (7.4-10.4); MONOCYTES % 12.4 % (2.0-8.0); NEUTROPHILS % 73.1 % (40.0-76.0); PLATELET 201 x1000/uL (130-400); RED BLOOD CELL COUNT 2.86 mill/uL (4.7-6.1); RED CELL DISTRIBUTION WIDTH 14.4 % (11.6-14.6)
[2019-05-03 07:56] LABS: CHLORIDE 103 mEq/L (98-107)
[2019-05-03 08:00] VITALS: BP 103/58
[2019-05-03 08:04] LABS: VANCOMYCIN TROUGH 20.5 ug/mL (5.0-10.0)
[2019-05-03] MEDS: VANCOMYCIN 1 G PREMIX 200 ML IV SCH (08:15)
[2019-05-03] MEDS: ENOXAPARIN 30MG/0.3ML SYR SUBCUT SCH ×2 (08:15→22:12)
[2019-05-03] MEDS: THIAMINE HCL 100MG TABLET PO SCH (08:15)
[2019-05-03] MEDS: MULTIVITAMINS,THER W-MINERALS TABLET PO SCH (08:15)
[2019-05-03] MEDS: SPIRONOLACTONE 50MG TABLET PO SCH ×2 (08:15→09:00)
[2019-05-03] MEDS: FUROSEMIDE 40MG TABLET PO SCH ×2 (08:16→22:12)
[2019-05-03] MEDS: FOLIC ACID 1MG TABLET PO SCH (08:18)
[2019-05-03 12:00] VITALS: BP 96/54
[2019-05-03 16:00] VITALS: BP 101/58
[2019-05-03] MEDS: LACTULOSE 20G/30ML UDC PO SCH (18:25)
[2019-05-03 20:00] VITALS: BP 113/69
[2019-05-03] MEDS: VANCOMYCIN 1500MG in DEXTROSE 5% WATER 250ML IV SCH (22:12)
[2019-05-03] MEDS: DIPHENHYDRAMINE 50MG/ML VIAL IV PRN (22:12)
[2019-05-04] VITALS: BP 109/59
[2019-05-04 04:00] VITALS: BP 100/59
[2019-05-04 07:20] LABS: BASOPHILS % 0.3 % (0.0-2.0); EOSINOPHILS % 0.4 % (0.0-5.0); HEMATOCRIT. 27.9 % (42.0-52.0); HEMOGLOBIN. 9.8 g/dL (14.0-18.0); LYMPHOCYTES % 7.8 % (20.0-50.0); MEAN CORPUSCULAR HEMOGLOBIN 35.1 pg (28.0-32.0); MEAN CORPUSCULAR VOLUME 100.6 fL (80.0-94.0); MEAN PLATELET VOLUME 7.5 fl (7.4-10.4); MONOCYTES % 9.6 % (2.0-8.0); NEUTROPHILS % 81.9 % (40.0-76.0); PLATELET 217 x1000/uL (130-400); RED BLOOD CELL COUNT 2.78 mill/uL (4.7-6.1); RED CELL DISTRIBUTION WIDTH 14.6 % (11.6-14.6)
[2019-05-04 08:00] VITALS: BP 101/56
[2019-05-04 08:28] LABS: CHLORIDE 103 mEq/L (98-107)
[2019-05-04] MEDS: LACTULOSE 20G/30ML UDC PO SCH ×2 (08:47→17:03)
[2019-05-04] MEDS: SPIRONOLACTONE 50MG TABLET PO SCH (08:48)
[2019-05-04] MEDS: ENOXAPARIN 30MG/0.3ML SYR SUBCUT SCH ×2 (08:48→22:58)
[2019-05-04] MEDS: MULTIVITAMINS,THER W-MINERALS TABLET PO SCH (08:48)
[2019-05-04] MEDS: FOLIC ACID 1MG TABLET PO SCH (08:48)
[2019-05-04] MEDS: FUROSEMIDE 40MG TABLET PO SCH ×2 (08:48→21:10)
[2019-05-04] MEDS: HALOPERIDOL LACTATE 5MG/ML VIAL IM PRN ×2 (08:49→17:03)
[2019-05-04] MEDS: THIAMINE HCL 100MG TABLET PO SCH (09:03)
[2019-05-04] MEDS: VANCOMYCIN 1500MG in DEXTROSE 5% WATER 250ML IV SCH ×2 (09:04→21:10)
[2019-05-04 12:40] VITALS: BP 81/42
[2019-05-04 16:43] VITALS: BP 113/58
[2019-05-04 20:00] VITALS: BP 109/61
[2019-05-05] VITALS: BP 101/69
[2019-05-05 04:00] VITALS: BP 109/68
[2019-05-05 08:00] VITALS: BP 162/134
[2019-05-05] MEDS: VANCOMYCIN 1500MG in DEXTROSE 5% WATER 250ML IV SCH (09:39)
[2019-05-05] MEDS: MULTIVITAMINS,THER W-MINERALS TABLET PO SCH (09:40)
[2019-05-05] MEDS: THIAMINE HCL 100MG TABLET PO SCH (09:40)
[2019-05-05] MEDS: LACTULOSE 20G/30ML UDC PO SCH (09:40)
[2019-05-05] MEDS: FUROSEMIDE 40MG TABLET PO SCH (09:40)
[2019-05-05] MEDS: FOLIC ACID 1MG TABLET PO SCH (09:40)
[2019-05-05] MEDS: SPIRONOLACTONE 50MG TABLET PO SCH (09:40)
[2019-05-05] MEDS: ENOXAPARIN 30MG/0.3ML SYR SUBCUT SCH (09:40)
[2019-05-05 10:54] LABS: BASOPHILS % 0.5 % (0.0-2.0); EOSINOPHILS % 0.8 % (0.0-5.0); HEMATOCRIT. 29.6 % (42.0-52.0); HEMOGLOBIN. 10.1 g/dL (14.0-18.0); LYMPHOCYTES % 13.1 % (20.0-50.0); MEAN CORPUSCULAR HEMOGLOBIN 34.9 pg (28.0-32.0); MEAN CORPUSCULAR VOLUME 101.9 fL (80.0-94.0); MONOCYTES % 8.5 % (2.0-8.0); NEUTROPHILS % 77.1 % (40.0-76.0); PLATELET 205 x1000/uL (130-400); RED BLOOD CELL COUNT 2.91 mill/uL (4.7-6.1); RED CELL DISTRIBUTION WIDTH 14.5 % (11.6-14.6)
[2019-05-05 11:35] LABS: CHLORIDE 101 mEq/L (98-107)
[2019-05-05 12:00] VITALS: BP 106/68
[2019-05-05] MEDS ORDERED: POTASSIUM CHLORIDE 20MEQ TABLET SR PO SCH (13:15)
[2019-05-05] MEDS ORDERED: ENOXAPARIN 100MG/ML SYR SUBCUT SCH (14:00)
[2019-05-05] MEDS ORDERED: LACTULOSE 20G/30ML UDC PO SCH (14:00)
[2019-05-05 16:08] VITALS: BP 100/53
[2019-05-05 18:48] VITALS: BP 100/53
[2019-05-05] MEDS ORDERED: VANCOMYCIN 1 G PREMIX 200 ML IV SCH (22:00)
== END 2019-05-05 19:40 | DRG 279 ==
LOC: ER 03:46 → 8WST 06:06 → ENRESERV 07:49 → 8WST 04-30 21:50
PROVIDERS: ADMIT Internal Medicine; ATTEND Internal Medicine
PROC: 0W9G3ZZ Drainage of Peritoneal Cavity, Percutaneous Approach (ICD-10-PCS; 2019-05-02)
PROC: 4A00X4Z Measurement of Central Nervous Electrical Activity, External Approach (ICD-10-PCS; principal; 2019-05-04)
DX: K72.00 Acute and subacute hepatic failure without coma (principal); G92 Toxic encephalopathy; D68.9 Coagulation defect, unspecified; I11.0 Hypertensive heart disease with heart failure; E87.1 Hypo-osmolality and hyponatremia; I50.9 Heart failure, unspecified; K70.31 Alcoholic cirrhosis of liver with ascites; D64.9 Anemia, unspecified; B15.9 Hepatitis A without hepatic coma; F41.9 Anxiety disorder, unspecified; I73.9 Peripheral vascular disease, unspecified; S41.009A Unspecified open wound of unspecified shoulder, initial encounter; J45.909 Unspecified asthma, uncomplicated; S00.91XA Abrasion of unspecified part of head, initial encounter; X58.XXXA Exposure to other specified factors, initial encounter; Y93.89 Activity, other specified; Y92.89 Other specified places as the place of occurrence of the external cause; Y99.8 Other external cause status; Z59.0 Homelessness; Z22.322 Carrier or suspected carrier of Methicillin resistant Staphylococcus aureus
CPT/HCPCS: 36415; 49083; 70551; 71045; 76705; 80048; 80061; 80076; 80202; 80305; 80320; 82140; 82607; 82746; 83036; 83735; 84100; 84134; 84439; 84443; 84481; 86705; 86709; 86803; 87340; 87389; 93970; 93971; 96374; 97161; 99285; J1200; J1630; J1650; J2405; J3370; J3490; J7060; G0480

== ENCOUNTER 2019-05-25 07:57 | Inpatient (IN) | payer MEDICAID ==
[~2019-05-25] VITALS: Ht 180.3 cm; Wt 60.3 kg
[2019-05-25 09:34] LABS: BASOPHILS % 0.2 % (0.0-2.0); EOSINOPHILS % 0.6 % (0.0-5.0); HEMATOCRIT. 34.7 % (42.0-52.0); HEMOGLOBIN. 11.9 g/dL (14.0-18.0); LYMPHOCYTES % 14.3 % (20.0-50.0); MEAN CORPUSCULAR VOLUME 99.4 fL (80.0-94.0); MEAN PLATELET VOLUME 7.4 fl (7.4-10.4); NEUTROPHILS % 72.9 % (40.0-76.0); PLATELET 260 x1000/uL (130-400); RED BLOOD CELL COUNT 3.49 mill/uL (4.7-6.1); RED CELL DISTRIBUTION WIDTH 14.1 % (11.6-14.6)
[2019-05-25 09:42] LABS: CHLORIDE 101 mEq/L (98-107); PROTHROMBIN TIME 10.8 sec (9.6-11.0)
[2019-05-25 09:46] LABS: ETHANOL BLOOD < 10 mg/dL
[2019-05-25 09:51] LABS: CREATINE KINASE 54 IU/L (39-308)
[2019-05-25 10:00] LABS: CLARITY URINE CLEAR (CLEAR); COLOR URINE YELLOW (YELLOW); KETONES URINE NEGATIVE (NEGATIVE); LEUKOCYTE ESTERASE URINE NEGATIVE (NEGATIVE); NITRITE URINE NEGATIVE (NEGATIVE); OCCULT BLOOD URINE NEGATIVE (NEGATIVE); PROTEIN URINE NEGATIVE (NEGATIVE); SPECIFIC GRAVITY URINE 1.005 (1.005-1.030); UROBILINOGEN URINE 0.2 E.U./dL (0.2-1.0)
[2019-05-25 10:16] LABS: *BARBITURATES SCREEN URINE NEGATIVE (NEGATIVE); CANNABINOID URINE SCREEN NEGATIVE (NEGATIVE); METHADONE URINE SCREEN NEGATIVE (NEGATIVE); OPIATES URINE SCREEN NEGATIVE (NEGATIVE); PHENCYCLIDINE URINE SCREEN NEGATIVE (NEGATIVE)
[2019-05-25 10:17] LABS: *AMPHETAMINES SCREEN URINE NEGATIVE (NEGATIVE); *BENZODIAZEPINES SCREEN URINE NEGATIVE (NEGATIVE); *COCAINE SCREEN URINE NEGATIVE (NEGATIVE)
[2019-05-25] MEDS ORDERED: LORAZEPAM 2MG/ML CPJ IM ONE (14:45)
[2019-05-25] MEDS ORDERED: HALOPERIDOL LACTATE 5MG/ML VIAL IM ONE (14:45)
[2019-05-25] MEDS ORDERED: MAGNESIUM/ALUMINUM HYDROXIDE/SIMETHICONE 30ML UDC PO PRN (21:00)
[2019-05-25] MEDS ORDERED: DIPHENHYDRAMINE 50MG/ML VIAL IV PRN (21:00)
[2019-05-25] MEDS ORDERED: HALOPERIDOL LACTATE 5MG/ML VIAL IM PRN (21:00)
[2019-05-25] MEDS ORDERED: GUAIFENESIN 200MG/10ML SUGAR FREE UDC PO PRN (21:00)
[2019-05-25] MEDS ORDERED: IPRATROPIUM/ALBUTEROL 0.5-3(2.5)MG/3ML NEB INH PRN (21:00)
[2019-05-25] MEDS ORDERED: ACETAMINOPHEN 325MG TABLET PO PRN (21:00)
[2019-05-25] MEDS ORDERED: ONDANSETRON HCL 4MG/2ML INJ IV PRN (21:00)
[2019-05-25] MEDS: LORAZEPAM 2MG/ML CPJ IV PRN (22:29)
[2019-05-25 22:35] VITALS: BP 101/55
[2019-05-25 23:00] VITALS: BP 101/55
[2019-05-26 04:00] VITALS: BP 104/55
[2019-05-26] MEDS: SODIUM CHLORIDE 0.9% INJ 3ML FLUSH IVF SCH ×3 (05:29→21:00)
[2019-05-26 08:00] VITALS: BP 95/60
[2019-05-26] MEDS: SPIRONOLACTONE 25MG TABLET PO SCH (09:00)
[2019-05-26] MEDS: FUROSEMIDE 40MG TABLET PO SCH (09:00)
[2019-05-26] MEDS: THIAMINE HCL 100MG TABLET PO SCH (09:54)
[2019-05-26] MEDS: FOLIC ACID 1MG TABLET PO SCH (09:54)
[2019-05-26] MEDS: RISPERIDONE 1MG TABLET PO SCH ×2 (09:54→20:58)
[2019-05-26] MEDS: LORAZEPAM 2MG/ML CPJ IV PRN (10:33)
[2019-05-26 12:00] VITALS: BP 96/66
[2019-05-26 17:21] VITALS: BP 100/57
[2019-05-26] MEDS: LACTULOSE 20G/30ML UDC PO SCH (19:07)
[2019-05-26 20:00] VITALS: BP 102/65
[2019-05-27] VITALS (7 sets, daily range): BP systolic 101–128; BP diastolic 59–76
[2019-05-27] MEDS: FUROSEMIDE 40MG TABLET PO SCH (09:00)
[2019-05-27] MEDS: SPIRONOLACTONE 25MG TABLET PO SCH (09:00)
[2019-05-27] MEDS: LACTULOSE 20G/30ML UDC PO SCH (09:16)
[2019-05-27] MEDS: THIAMINE HCL 100MG TABLET PO SCH (09:17)
[2019-05-27] MEDS: FOLIC ACID 1MG TABLET PO SCH (09:17)
[2019-05-27] MEDS: RISPERIDONE 1MG TABLET PO SCH ×2 (09:17→21:05)
[2019-05-27] MEDS: SODIUM CHLORIDE 0.9% INJ 3ML FLUSH IVF SCH ×2 (14:00→21:05)
[2019-05-28 04:00] VITALS: BP 112/61
[2019-05-28] MEDS: SODIUM CHLORIDE 0.9% INJ 3ML FLUSH IVF SCH ×2 (05:46→13:32)
[2019-05-28 08:00] VITALS: BP 99/62
[2019-05-28] MEDS: FUROSEMIDE 40MG TABLET PO SCH (09:00)
[2019-05-28] MEDS: SPIRONOLACTONE 25MG TABLET PO SCH (09:00)
[2019-05-28] MEDS: RISPERIDONE 1MG TABLET PO SCH (09:30)
[2019-05-28] MEDS: FOLIC ACID 1MG TABLET PO SCH (09:30)
[2019-05-28] MEDS: THIAMINE HCL 100MG TABLET PO SCH (09:30)
[2019-05-28] MEDS: LACTULOSE 20G/30ML UDC PO SCH (09:30)
[2019-05-28 12:00] VITALS: BP 98/60
[2019-05-28] MEDS ORDERED: LACTULOSE 20G/30ML UDC PO SCH (14:00)
== END 2019-05-28 15:20 | disposition left against medical advice (07) | DRG 280 ==
LOC: ER 07:57 → 8WST 18:32 → EDBEDREQTM 18:35 → EDBEDREQ 18:35 → ENRESERV 21:30
PROVIDERS: ADMIT Internal Medicine; ATTEND Internal Medicine
DX: K70.31 Alcoholic cirrhosis of liver with ascites (principal); E43 Unspecified severe protein-calorie malnutrition; I11.0 Hypertensive heart disease with heart failure; I50.9 Heart failure, unspecified; E88.09 Other disorders of plasma-protein metabolism, not elsewhere classified; F20.0 Paranoid schizophrenia; D53.9 Nutritional anemia, unspecified; I73.9 Peripheral vascular disease, unspecified; Z59.0 Homelessness; Z68.1 Body mass index [BMI] 19.9 or less, adult
CPT/HCPCS: 36415; 71045; 80076; 80305; 80320; 81003; 82140; 82248; 82550; 83605; 84443; 84484; 93005; 99285; J1200; J2060; G0480

== ENCOUNTER 2020-04-16 04:13 | Emergency (ER) | payer MEDICAID ==
[~2020-04-16] VITALS: Ht 177.8 cm; Wt 80.0 kg
[2020-04-16 05:15] LABS: BASOPHILS % 0.3 % (0.0-2.0); EOSINOPHILS % 6.9 % (0.0-5.0); HEMATOCRIT. 32.8 % (42.0-52.0); HEMOGLOBIN. 11.1 g/dL (14.0-18.0); LYMPHOCYTES % 8.6 % (20.0-50.0); MEAN CORPUSCULAR HEMOGLOBIN 30.2 pg (28.0-32.0); MEAN CORPUSCULAR VOLUME 88.8 fL (80.0-94.0); MEAN PLATELET VOLUME 8.1 fl (7.4-10.4); MONOCYTES % 13.3 % (2.0-8.0); NEUTROPHILS % 70.9 % (40.0-76.0); PLATELET 196 x1000/uL (130-400); RED BLOOD CELL COUNT 3.69 mill/uL (4.7-6.1); RED CELL DISTRIBUTION WIDTH 13.9 % (11.6-14.6)
[2020-04-16 05:17] LABS: CHLORIDE 100 mEq/L (98-107)
[2020-04-16 05:21] LABS: ETHANOL BLOOD < 10 mg/dL
[2020-04-16] MEDS ORDERED: POTASSIUM CHLORIDE 20MEQ/PACKET PO ONE (06:00)
[2020-04-16 06:36] VITALS: BP 128/72
== END 2020-04-16 07:07 | disposition home or self-care (01) ==
LOC: ER 04:13
DX: S00.81XA Abrasion of other part of head, initial encounter (principal); B86 Scabies; K76.9 Liver disease, unspecified; W18.39XA Other fall on same level, initial encounter; Y93.89 Activity, other specified; Y92.89 Other specified places as the place of occurrence of the external cause; Y99.8 Other external cause status
CPT/HCPCS: 36415; 80053; 80320; 82140; 85025; 99284; G0480

== ENCOUNTER 2020-04-18 19:15 | Emergency (ER) | payer MEDICAID ==
[~2020-04-18] VITALS: Ht 180.3 cm; Wt 96.0 kg
[2020-04-18] MEDS ORDERED: IBUPROFEN 600MG TABLET PO ONE (20:15)
[2020-04-18] MEDS ORDERED: BACITRACIN ZINC OINT UDPKT TOP ONE (20:15)
[2020-04-18 20:21] LABS: BASOPHILS % 0.4 % (0.0-2.0); EOSINOPHILS % 0.5 % (0.0-5.0); HEMATOCRIT. 35.1 % (42.0-52.0); LYMPHOCYTES % 9.8 % (20.0-50.0); MEAN CORPUSCULAR HEMOGLOBIN 30.3 pg (28.0-32.0); MEAN CORPUSCULAR VOLUME 88.4 fL (80.0-94.0); MEAN PLATELET VOLUME 7.6 fl (7.4-10.4); MONOCYTES % 6.8 % (2.0-8.0); NEUTROPHILS % 82.5 % (40.0-76.0); PLATELET 294 x1000/uL (130-400); RED BLOOD CELL COUNT 3.97 mill/uL (4.7-6.1); RED CELL DISTRIBUTION WIDTH 14.2 % (11.6-14.6)
[2020-04-18 20:26] LABS: CHLORIDE 98 mEq/L (98-107)
[2020-04-18 20:31] LABS: ETHANOL BLOOD < 10 mg/dL
[2020-04-18 22:31] VITALS: BP 107/58
[2020-04-18] MEDS ORDERED: POTASSIUM CHLORIDE 20MEQ TABLET SR PO ONE (22:45)
== END 2020-04-19 10:13 | disposition home or self-care (01) ==
LOC: ER 19:15
DX: S01.00XA Unspecified open wound of scalp, initial encounter (principal); R51 Headache; E87.6 Hypokalemia; Z75.1 Person awaiting admission to adequate facility elsewhere; Z59.0 Homelessness; X58.XXXA Exposure to other specified factors, initial encounter; Y93.89 Activity, other specified; Y92.018 Other place in single-family (private) house as the place of occurrence of the external cause
CPT/HCPCS: 36415; 80048; 80320; 85025; 99284; G0480

== ENCOUNTER 2022-09-04 21:39 | Emergency (ER) | payer BC, MEDICAID ==
[~2022-09-04] VITALS: Ht 172.7 cm; Wt 80.0 kg
[2022-09-04 21:50] VITALS: BP 148/88
== END 2022-09-04 22:22 | disposition home or self-care (01) ==
LOC: ER 22:00
DX: S80.812A Abrasion, left lower leg, initial encounter (principal); X58.XXXA Exposure to other specified factors, initial encounter; Y93.89 Activity, other specified; Y92.89 Other specified places as the place of occurrence of the external cause; Z59.00 Homelessness unspecified
CPT/HCPCS: 99283

== ENCOUNTER 2022-09-06 14:09 | Emergency (ER) | payer BC, MEDICAID ==
[~2022-09-06] VITALS: Ht 175.3 cm; Wt 87.0 kg
[2022-09-06 14:12] VITALS: BP 140/88
[2022-09-06] MEDS ORDERED: BACITRACIN ZINC OINT UDPKT TOP ONE (14:45)
[2022-09-06] MEDS ORDERED: LORA10TA7 MT (15:49)
[2022-09-06] MEDS ORDERED: BO1 TP (15:49)
[2022-09-06] MEDS ORDERED: CEPH500T MT (15:52)
== END 2022-09-06 17:30 | disposition home or self-care (01) ==
LOC: ER 14:09
DX: L29.9 Pruritus, unspecified (principal)
CPT/HCPCS: 99283